=== PATIENT | male | born 1985 | race Two or more races ===

== ENCOUNTER 2018-01-07 16:54 | Emergency (ER) | payer MEDICAID ==
[~2018-01-07] VITALS: Ht 172.7 cm; Wt 72.6 kg
[2018-01-07 16:38] VITALS: BP 147/92
[2018-01-07] MEDS ORDERED: Ketorolac 30mg Inj IM ONE (17:00)
[2018-01-07] MEDS ORDERED: Norco 5mg/325mg tab PO ONE (17:00)
[2018-01-07] MEDS ORDERED: IBUPROFEN600 MG ORAL (18:06)
[2018-01-07] MEDS ORDERED: ROBAXIN-750750 MG PO (18:06)
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
--- NOTE | 2018-01-08 10:11 | Diagnostic Imaging Report ---
Indication: Neck pain. Technique: Continuous helical imaging of the cervical spine was obtained transaxially from the skull base to the upper thoracic spine. 2-D coronal and sagittal reformatted images were obtained. Automatic Exposure Control was utilized. Total Dose length Product (DLP): 415.[address] Dose Index Volume (CTDIvol): 19.53 mGy Comparison: None Findings: There is no evidence of an acute fracture or malalignment. Atlantoaxial alignment appears normal. Height and configuration of the vertebral bodies and intervertebral discs are within normal limits. Uncovertebral joints and facets are unremarkable. There is no soft tissue swelling. Small fluid retention cyst in the right maxillary sinus noted. There are multiple tiny nodes throughout the neck nonspecific in nature. Impression: Negative cervical spine CT for acute injury The CT scanner at [facility] is accredited by the [employer] and the scans are performed using dose optimization techniques as appropriate to a performed exam including Automatic Exposure control.
== END 2018-01-07 18:45 | disposition home or self-care (01) ==
LOC: EDBD 16:54 → EMR 18:20
DX: S16.1XXA Strain of muscle, fascia and tendon at neck level, initial encounter (principal); V73.5XXA Driver of bus injured in collision with car, pick-up truck or van in traffic accident, initial encounter; Y92.410 Unspecified street and highway as the place of occurrence of the external cause
CPT/HCPCS: 72125; 96372; 99284; J1885

== ENCOUNTER 2020-07-25 23:35 | Emergency (ER) | payer SELFPAY ==
[~2020-07-25] VITALS: Ht 167.6 cm; Wt 86.2 kg
[~2020-07-25 23:35] MED LIST: IBUPROFEN600 MG ORAL; ROBAXIN-750750 MG PO
[2020-07-25 23:53] VITALS: BP 125/70
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
[2020-07-26 00:33] LABS: EOSINOPHILS % (AUTO) 2.2 % (0.0-3.0); HEMATOCRIT 39.1 % (42.0-52.0); HEMOGLOBIN 13.2 G/DL (14.2-18.0); LYMPHOCYTES % (AUTO) 36.8 % (20.0-45.0); MEAN CORPUSCULAR VOLUME 88 FL (80-99); MONOCYTES % (AUTO) 7.1 % (1.0-10.0); NEUTROPHILS % (AUTO) 52.9 % (45.0-75.0); PLATELET COUNT 309 K/UL (150-450); RED BLOOD COUNT 4.42 M/UL (4.70-6.10); RED CELL DISTRIBUTION WIDTH 12.3 % (11.6-14.8); WHITE BLOOD COUNT 11.6 K/UL (4.8-10.8)
[2020-07-26 00:43] LABS: ANION GAP 7 mmol/L (5-15); BLOOD UREA NITROGEN 18 mg/dL (7-18); CALCIUM 8.6 MG/DL (8.5-10.1); CARBON DIOXIDE 28 MMOL/L (21-32); CHLORIDE 102 MMOL/L (98-107); CREATININE 1.1 MG/DL (0.55-1.30); POTASSIUM 3.8 MMOL/L (3.5-5.1); SODIUM 137 MMOL/L (136-145)
[2020-07-26 01:14] VITALS: BP 120/73
== END 2020-07-26 01:10 | disposition home or self-care (01) ==
LOC: EMR 23:48
DX: M10.9 Gout, unspecified (principal)
CPT/HCPCS: 36415; 80048; 84550; 85025; 85610; 85730; 99282